=== PATIENT | female | born 1975 | race Two or more races ===

== ENCOUNTER 2023-05-16 15:54 | Emergency (ER) | payer BC, OTHER ==
[2023-05-16 16:20] VITALS: BP 135/86; PULSE 85; RESP 15; TEMP 98.7; BMI 32.8
== END 2023-05-16 16:55 | disposition home or self-care (01) ==
LOC: FER 15:54
DX: H57.89 Other specified disorders of eye and adnexa (principal); H02.846 Edema of left eye, unspecified eyelid; H02.843 Edema of right eye, unspecified eyelid; H57.13 Ocular pain, bilateral; T50.995A Adverse effect of other drugs, medicaments and biological substances, initial encounter
CPT/HCPCS: 99283-25